=== PATIENT | female | born 1950 | race Hispanic/Latino ===

== ENCOUNTER 2017-07-31 10:30 | Outpatient (CLI) | payer MEDICARE ==
[2017-07-31] MEDS ORDERED: XYLOCAINE TOPICAL 4% TP ONE (11:45)
== END 2017-07-31 10:31 | disposition home or self-care (01) ==
LOC: WOUND 10:30
PROVIDERS: ATTEND Nurse Practitioner
DX: I87.311 Chronic venous hypertension (idiopathic) with ulcer of right lower extremity (principal); L97.211 Non-pressure chronic ulcer of right calf limited to breakdown of skin; I11.0 Hypertensive heart disease with heart failure; I50.9 Heart failure, unspecified
CPT/HCPCS: 11042; 87075; 87076; 87116; 87186; G0463; 99205

== ENCOUNTER 2017-08-13 09:23 | Outpatient (CLI) | payer MEDICARE ==
[~2017-08-13 09:23] MED LIST: MARCAINE 0.5% 30 ML INFILTRATI ONE; XYLOCAINE 1% 20 mL ONE
[2017-08-13] MEDS ORDERED: XYLOCAINE TOPICAL 2% 5ML ONE (10:24)
[2017-08-13] MEDS ORDERED: XYLOCAINE TOPICAL 2% 5ML TP ONE (10:49)
== END 2017-08-13 09:24 | disposition home or self-care (01) ==
LOC: WOUND 09:23
PROVIDERS: ATTEND Surgery
DX: I87.311 Chronic venous hypertension (idiopathic) with ulcer of right lower extremity (principal); L97.212 Non-pressure chronic ulcer of right calf with fat layer exposed; I11.0 Hypertensive heart disease with heart failure; I50.32 Chronic diastolic (congestive) heart failure; I48.2 Chronic atrial fibrillation
CPT/HCPCS: 29580

== ENCOUNTER 2017-08-20 08:43 | Outpatient (CLI) | payer MEDICARE | END 2017-08-20 08:44 | disposition home or self-care (01) | LOC: WOUND 08:43 | PROVIDERS: ATTEND Surgery | DX: I87.311 Chronic venous hypertension (idiopathic) with ulcer of right lower extremity (principal); L97.212 Non-pressure chronic ulcer of right calf with fat layer exposed; I11.0 Hypertensive heart disease with heart failure; I50.32 Chronic diastolic (congestive) heart failure; I48.2 Chronic atrial fibrillation | CPT/HCPCS: 29580 ==

== ENCOUNTER 2017-08-28 09:52 | Outpatient (CLI) | payer MEDICARE ==
[2017-08-28] MEDS ORDERED: XYLOCAINE TOPICAL 4% TP ONE (09:56)
== END 2017-08-28 09:53 | disposition home or self-care (01) ==
LOC: WOUND 09:52
PROVIDERS: ATTEND Surgery
DX: I87.311 Chronic venous hypertension (idiopathic) with ulcer of right lower extremity (principal); L97.212 Non-pressure chronic ulcer of right calf with fat layer exposed; I11.0 Hypertensive heart disease with heart failure; I50.32 Chronic diastolic (congestive) heart failure; I48.2 Chronic atrial fibrillation
CPT/HCPCS: 99213; G0463